=== PATIENT | male | born 1995 | race Caucasian/White ===

== ENCOUNTER 2018-12-08 14:06 | Inpatient (IN) ==
[~2018-12-08 14:06] MED LIST: ATARAX PO PRN; BENTYL PO PRN; D5W 1,000 ML IV PRN; DESYREL PO PRN; DULCOLAX PR PRN; IMODIUM PO PRN; LIBRIUM PO PRN; LIBRIUM PO SCH; MAALOX PLUS LIQUID PO PRN; MOTRIN PO PRN; NICODERM PATCH TD PRN; PHENOBARBITAL IV PRN; ROBAXIN PO PRN; SENOKOT PO PRN; SEROQUEL PO PRN; SINEMET 25/100 PO PRN; TUBERSOL ID ONE; TYLENOL PO PRN; ZOFRAN IV PRN; ZOFRAN ODT PO PRN
[2018-12-08 15:08] LABS: URINE SOURCE CLEAN CATCH
[2018-12-08 15:10] LABS: BILIRUBIN URINE NEGATIVE (NEGATIVE); BLOOD URINE NEGATIVE (NEGATIVE); GLUCOSE URINE NEGATIVE (NEGATIVE); KETONE URINE NEGATIVE (NEGATIVE); LEUKOCYTES URINE NEGATIVE (NEGATIVE); NITRITE URINE NEGATIVE (NEGATIVE); PROTEIN URINE NEGATIVE (NEGATIVE); SP GRAVITY URINE 1.005; UROBILINOGEN URINE NORMAL
[2018-12-08 15:11] LABS: CLARITY CLEAR (CLEAR); COLOR YELLOW
[2018-12-08 15:42] LABS: UR AMPHETAMINES QUAL PRESUMPTIVE POSITIVE (NONE DETECT); UR BARBITUATES QUAL NONE DETECTED (NONE DETECT); UR BENZODIAZEPIN QUAL NONE DETECTED (NONE DETECT); UR CANNABINOIDS QUAL PRESUMPTIVE POSITIVE (NONE DETECT); UR COCAINE QUAL NONE DETECTED (NONE DETECT); UR METHADONE QUAL NONE DETECTED (NONE DETECT); UR METHAMPHETAMINE QUAL PRESUMPTIVE POSITIVE (NONE DETECT); UR OPIATES QUAL NONE DETECTED (NONE DETECT); UR OXYCODONE QUAL NONE DETECTED (NONE DETECT); UR PCP QUAL NONE DETECTED (NONE DETECT); UR PROPOXYPHENE QUAL NONE DETECTED (NONE DETECT); UR TCA QUAL NONE DETECTED (NONE DETECT)
[2018-12-08 15:55] LABS: HEMATOCRIT 48.8 % (42.0-52.0); HEMOGLOBIN 16.4 g/dL (14.0-18.0); MCH 29.6 PG (27-31); MCHC 33.6 g/dL (33-37); MCV 88.1 FL (81-99); MPV 9.2 FL (7.4-10.4); RBC 5.54 XMIL (4.7-6.1); RDW 13.4 % (11.5-14.5); WBC 7.01 X1000 (4.8-10.8)
[2018-12-08 16:13] LABS: INR 0.92; PROTIME 12.8 Seconds (11.0-16.0)
[2018-12-08 16:18] LABS: AGAP 10; ALBUMIN 4.3 g/dL (3.5-5.0); ALKALINE PHOSPHATASE 74 U/L (32-122); BUN 7 mg/dL (8-22); CALCIUM 9.7 mg/dL (8.8-10.2); CHLORIDE 100 mmol/L (98-107); COSMO 275; CREATININE 0.8 mg/dL (0.7-1.2); ESTIMATED GFR > 60; GLUCOSE 96 mg/dL (70-104); GOT 22 U/L (10-34); GPT 8 U/L (10-44); SODIUM 139 mmol/L (136-145); TCO2 28 mmol/L (25-35)
[2018-12-08 16:33] LABS: AMYLASE 77 U/L (20-200); LIPASE 52 U/L (13-60)
[2018-12-08] MEDS: LIBRIUM PO SCH (17:25)
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
[2018-12-09] MEDS: LIBRIUM PO SCH ×4 (00:47→18:08)
[2018-12-09] MEDS: MELATONIN PO SCH ×2 (00:49→21:46)
[2018-12-09] MEDS: PROTONIX PO SCH (06:59)
[2018-12-09] MEDS: VITAMIN B-1 PO SCH (10:56)
[2018-12-09] MEDS: THERA M PLUS PO SCH (10:56)
[2018-12-09] MEDS: FOLIC ACID PO SCH (10:56)
--- NOTE | 2018-12-09 18:35 | PROGRESS NOTE ---
DATE: 12/09/2018 SUBJECTIVE: Patient states he is feeling okay. He is still having some muscle aches and does not feel great, but does note that he feels better than he did. Denies any tremors. Denies any current vomiting. States his nausea has improved. Does note that a banana bag made him feel better. PHYSICAL EXAMINATION: Vital Signs: Reviewed. Temperature 97.9 degrees, pulse 72, respiratory rate 18, BP 106/60. General: Patient is in no current respiratory distress, very pleasant to talk with. HEENT: Normocephalic. Neck: Supple. Cardiovascular: Regular rate. No murmurs. Chest: Clear. Abdomen: Soft. Extremities: Moves all extremities. ASSESSMENT: 1. Nausea and vomiting. 2. Abdominal pain. 3. Myalgias. 4. Paresthesias. 5. Paroxysmal sweating. 6. Opiate abuse, withdrawal and stabilization. PLAN: We will continue patient in the hospital. Continue to follow. Further orders as needed. Continue counseling and continue Librium, and hopefully can taper totally off prior to discharge. cc: Demetrius Pond MD
[2018-12-10] MEDS: LIBRIUM PO SCH ×3 (01:30→17:31)
[2018-12-10] MEDS: PROTONIX PO SCH ×2 (06:29→09:14)
[2018-12-10] MEDS: FOLIC ACID PO SCH (09:14)
[2018-12-10] MEDS: THERA M PLUS PO SCH (09:14)
[2018-12-10] MEDS: VITAMIN B-1 PO SCH (09:14)
[2018-12-10] MEDS: MELATONIN PO SCH (20:59)
[2018-12-11] MEDS: LIBRIUM PO SCH ×2 (02:59→09:30)
[2018-12-11] MEDS: PROTONIX PO SCH (06:41)
--- NOTE | 2018-12-11 08:28 | PROGRESS NOTE ---
DATE: 12/10/2018 SUBJECTIVE: Patient notes that he is feeling better. Denies any significant symptoms. Still does not feel quite well, still having some muscle aches. Denies any fevers or chills. PHYSICAL EXAMINATION: Vital Signs: Reviewed. General: The patient is awake and alert. Currently, in no respiratory distress. HEENT: Normocephalic. Neck: Supple. Cardiovascular: Regular rate. Chest: Clear. Abdomen: Soft. Extremities: Moves all extremities. ASSESSMENT: 1. Nausea and vomiting. 2. Abdominal pain. 3. Myalgias. 4. Paresthesias. 5. Paroxysmal sweating. PLAN: We will continue patient in the hospital. Continue Librium taper for his opioid withdrawal. Continue counseling. Hopefully, he can discharge home over the next day or 2. cc: Demetrius Pond MD
[2018-12-11 09:12] VITALS: BP 138/87
[2018-12-11] MEDS: FOLIC ACID PO SCH (09:29)
[2018-12-11] MEDS: VITAMIN B-1 PO SCH (09:30)
[2018-12-11] MEDS: THERA M PLUS PO SCH (09:30)
--- NOTE | 2018-12-11 15:42 | DISCHARGE SUMMARY ---
ADMISSION DATE: 12/08/2018 DISCHARGE DATE: 12/11/2018 DISCHARGE DIAGNOSIS: 1. Nausea, vomiting. 2. Abdominal pain. 3. Myalgias. 4. Paresthesias. 5. Paroxysmal sweating. 6. Opiate abuse withdrawal and stabilization. CONSULTATIONS: None. PROCEDURES: None. BRIEF HOSPITAL COURSE: The patient was admitted to the hospital, placed on high-dose Librium taper. Continued counseling was performed each day by myself. Thankfully, on discharge, patient is awake, alert. He is in no distress. Overall, he notes feeling better. His withdrawal symptoms have all but resolved. DISPOSITION: Patient will be discharged home. He is to immediately go to further inpatient life counseling. His mom is going to pick him up and carry him there. Discussed with patient he needs to avoid all persons, places, situations which he has been using and abusing in the past. He needs outpatient life counseling as well as drug counseling. He should consider naltrexone versus Vivitrol although he has used too recently to start either while in the hospital. Greater than 30 minutes was spent in total care. cc: Demetrius Pond MD
== END 2018-12-11 09:20 | disposition home or self-care (01) | DRG 392 ==
LOC: P.DIRADM 14:06 → P.MEDSURG 14:29
PROVIDERS: ADMIT Family Medicine; ATTEND Family Medicine